=== PATIENT | female | born 1965 | race Caucasian/White ===

== ENCOUNTER 2017-03-08 15:51 | Emergency (ER) | payer BC, OTHER ==
[2017-03-08 17:35] LABS: Hematocrit 38 % (35-47); Hemoglobin 12.2 g/dl (12.0-16.0); Mean Corpuscular HGB Conc 33 g/dl (31-36); Mean Corpuscular Hemoglobin 29 pg (27-31); Mean Corpuscular Volume 88 fL (80-97); Mean Platelet Volume 8 um3 (7.4-10.4); Red Cell Distribution Width 13 % (10.5-15); White Blood Count 8.4 10^3/ul (3.5-10.8)
[2017-03-08 17:58] LABS: Urine Bilirubin Negative (Negative); Urine Glucose Negative (Negative); Urine Nitrite Negative (Negative)
[2017-03-08 18:06] LABS: Albumin 3.8 g/dL (3.2-5.2); C Reactive Protein 20.38 mg/L (< 5.00); Calcium 8.7 mg/dL (8.6-10.3); EGFR African American 77.9 (>60); EGFR Non-African American 60.6 (>60); Globulin 2.8 g/dL (2-4); Total Bilirubin 0.4 mg/dL (0.2-1.0); Total Protein 6.6 g/dL (6.4-8.9)
[2017-03-08] MEDS ORDERED: Iohexol 300* (CONTRAST) 10 ML SDV IV ONE (18:11)
--- NOTE | 2017-03-08 20:02 | RAD ---
INDICATION: Right lower quadrant abdominal pain. COMPARISON: Comparison is made with a prior CT of the abdomen and pelvis from September 08, 2015. TECHNIQUE: A CT scan of the abdomen and pelvis was performed with intravenous and oral contrast following intravenous injection of 85 ml of Omnipaque 300 nonionic contrast. Contiguous axial sections were obtained from the lung bases through the symphysis pubis. Images were reconstructed in the coronal and sagittal planes. FINDINGS: There is mild dependent bilateral lower lobe subsegmental atelectasis. No pleural effusion is present. The liver and spleen are within normal limits in size without significant focal abnormality. No calcified gallstones are seen. The pancreas appears to be within normal limits in size. The kidneys and adrenal glands are normal in size. No hydronephrosis is seen. No significant focal renal abnormality is seen. The aorta is normal in caliber with mild calcific plaque present. No significant enlarged retroperitoneal lymph nodes are seen. The stomach, small and large bowel appear nondistended. The patient is status post appendectomy by history. There is mild to moderate descending and sigmoid diverticulosis. There is mild thickening of the wall of the proximal sigmoid colon with stranding in the adjacent mesenteric fat which is a nonspecific finding although most consistent with diverticulitis. No abscess is seen. The uterus is anteverted and mildly enlarged. No free intraperitoneal air or fluid is seen. No fracture is seen. There is severe degenerative disc disease and sclerotic degenerative endplate changes at the L5-S1 level. IMPRESSION: 1. FINDINGS MOST CONSISTENT WITH DIVERTICULITIS. CONSIDER FOLLOW-UP COLONOSCOPY IF THE PATIENT HAS NOT HAD A RECENT STUDY. 2. MILDLY ENLARGED UTERUS.
[2017-03-08] MEDS ORDERED: HYDROcodone/ACETAMIN 5-325 MG* 1 TAB PO ONE (20:24)
[2017-03-08] MEDS ORDERED: metroNIDAZOLE TAB* 250 MG PO ONE (21:00)
[2017-03-08] MEDS ORDERED: Ciprofloxacin TAB* 500 MG PO ONE (21:00)
[2017-03-08 21:44] VITALS: BP 119/66
--- NOTE | 2017-03-08 22:38 | ED ---
Kay Underwood Erika, scribed for José Hardin MD on 03/08/17 at 1633 . Abdominal Pain/Female - HPI Summary HPI Summary: Patient is a 52-year-old female presenting to the ED with a CC of sharp LLQ pain for the past 1-2 weeks. Patient reports pain has been mostly constant, but sometimes waxes and wanes seemingly randomly. Pain is aggravated by palpation and when hitting bumps on the road. She notes she had some nausea, but denies vomiting, diarrhea, blood in stool, and urinary symptoms. She reports a normal BM today. Hx kidney stones with sepsis. PSHx cataract surgery, appendectomy. - History of Current Complaint Chief Complaint: EDAbdPain Stated Complaint: ABD PAIN Time Seen by Provider: 03/08/17 16:08 Hx Obtained From: Patient Onset/Duration: Gradual Onset, Lasting Weeks, Still Present Timing: Constant Severity Currently: Moderate Pain Intensity: 5 Pain Scale Used: 0-10 Numeric Location: Discrete At: LLQ Character: Sharp Aggravating Factor(s): Other: - palpation, bumps in road Associated Signs and Symptoms: Positive: Nausea. Negative: Urinary Symptoms, Vomiting, Diarrhea Allergies/Adverse Reactions: Allergies Allergy/AdvReac Type Severity Reaction Status Date / Time No Known Allergies Allergy Verified 03/08/17 15:54 Home Medications: Home Medications Escitalopram (NF) [Lexapro (NF)] 10 mg PO DAILY 03/08/17 [History Confirmed 01/20] Lisinopril TAB* [Prinivil TAB*] 10 mg PO DAILY 03/08/17 [History Confirmed 03/08] PMH/Surg Hx/FS Hx/Imm Hx History: Reports: Hx Kidney Stones Opthamlomology History: Reports: Hx Cataracts - Surgical History Surgery Procedure, Year, and Place: right nephrostomy tube placed 08/21/15, appy , cataracts Infectious Disease History: Denies: Traveled Outside the [place] in Last 30 Days - Family History Known Family History: Positive: Cardiac Disease - [place] before age 55 - father, sibling, grandparent, Hypertension, Diabetes - Social History Alcohol Use: Rare Hx Substance Use: No Substance Use Type: Reports: None Hx Tobacco Use: Yes Smoking Status (MU): Former Smoker Review of Systems Positive: Abdominal Pain, Nausea. Negative: Vomiting, Diarrhea Negative: dysuria, frequency All Other Systems Reviewed And Are Negative: Yes Physical Exam Triage Information Reviewed: Yes Vital Signs On Initial Exam: Initial Vitals Temp Pulse Resp BP Pulse Ox 98.1 F 65 18 131/75 100 03/08/17 15:52 03/08/17 15:52 03/08/17 15:52 03/08/17 15:52 03/08/17 15:52 Vital Signs Reviewed: Yes Appearance: Positive: Well-Appearing, No Pain Distress Skin: Positive: Warm, Skin Color Reflects Adequate Perfusion, Dry Head/Face: Positive: Normal Head/Face Inspection Eyes: Positive: Normal ENT: Positive: Normal ENT inspection Neck: Positive: Supple, Nontender Respiratory/Lung Sounds: Positive: Clear to Auscultation, Breath Sounds Present Cardiovascular: Positive: RRR Abdomen Description: Positive: Soft, Other: - Tender LLQ with no rebound. Negative: Guarding Bowel Sounds: Positive: Present Musculoskeletal: Positive: Normal Neurological: Positive: Normal Psychiatric: Positive: Affect/Mood Appropriate Diagnostics - Vital Signs Vital Signs Temp Pulse Resp BP Pulse Ox 03/08/17 15:52 98.1 F 65 18 131/75 100 - Laboratory Lab Results: Lab Results 03/08/17 03/08/17 03/08/17 Range/Units 16:15 17:15 17:15 WBC 8.4 (3.5-10.8) 10^3/ul RBC 4.30 (4.0-5.4) 10^6/ul Hgb 12.2 (12.0-16.0) g/dl Hct 38 (35-47) % MCV 88 (80-97) fL MCH 29 (27-31) pg MCHC 33 (31-36) g/dl RDW 13 (10.5-15) % Plt Count 238 (150-450) 10^3/ul MPV 8 (7.4-10.4) um3 Neut % (Auto) 65.0 (38-83) % Lymph % (Auto) 22.3 L (25-47) % [place] % (Auto) 9.3 H (1-9) % Eos % (Auto) 3.0 (0-6) % Baso % (Auto) 0.4 (0-2) % Absolute Neuts (auto) 5.5 (1.5-7.7) 10^3/ul Absolute Lymphs (auto) 1.9 (1.0-4.8) 10^3/ul Absolute Monos (auto) 0.8 (0-0.8) 10^3/ul Absolute Eos (auto) 0.3 (0-0.6) 10^3/ul Absolute Basos (auto) 0 (0-0.2) 10^3/ul Absolute Nucleated RBC 0 10^3/ul Nucleated RBC % 0 Sodium 139 (133-145) mmol/L Potassium 4.0 (3.5-5.0) mmol/L Chloride 108 (101-111) mmol/L Carbon Dioxide 26 (22-32) mmol/L Anion Gap 5 (2-11) mmol/L BUN 24 (6-24) mg/dL Creatinine 0.96 H (0.51-0.95) mg/dL Est GFR ( Amer) 77.9 (>60) Est GFR (Non-Af Amer) 60.6 (>60) BUN/Creatinine Ratio 25.0 H (8-20) Glucose 83 (70-100) mg/dL Lactic Acid (0.5-2.0) mmol/L Calcium 8.7 (8.6-10.3) mg/dL Total Bilirubin 0.40 (0.2-1.0) mg/dL AST 10 L (13-39) U/L ALT 8 (7-52) U/L Alkaline Phosphatase 59 (34-104) U/L C-Reactive Protein 20.38 H (< 5.00) mg/L Total Protein 6.6 (6.4-8.9) g/dL Albumin 3.8 (3.2-5.2) g/dL Globulin 2.8 (2-4) g/dL Albumin/Globulin Ratio 1.4 (1-3) Lipase 65 (11.0-82.0) U/L Urine Color Yellow Urine Appearance Cloudy Urine pH 6.0 (5-9) Ur Specific [place] 1.025 (1.010-1.030) Urine Protein Negative (Negative) Urine Ketones Negative (Negative) Urine Blood Negative (Negative) Urine Nitrate Negative (Negative) Urine Bilirubin Negative (Negative) Urine Urobilinogen Negative (Negative) Ur Leukocyte Esterase Negative (Negative) Urine Glucose Negative (Negative) 03/08/17 Range/Units 17:15 WBC (3.5-10.8) 10^3/ul RBC (4.0-5.4) 10^6/ul Hgb (12.0-16.0) g/dl Hct (35-47) % MCV (80-97) fL MCH (27-31) pg MCHC (31-36) g/dl RDW (10.5-15) % Plt Count (150-450) 10^3/ul MPV (7.4-10.4) um3 Neut % (Auto) (38-83) % Lymph % (Auto) (25-47) % [place] % (Auto) (1-9) % Eos % (Auto) (0-6) % Baso % (Auto) (0-2) % Absolute Neuts (auto) (1.5-7.7) 10^3/ul Absolute Lymphs (auto) (1.0-4.8) 10^3/ul Absolute Monos (auto) (0-0.8) 10^3/ul Absolute Eos (auto) (0-0.6) 10^3/ul Absolute Basos (auto) (0-0.2) 10^3/ul Absolute Nucleated RBC 10^3/ul Nucleated RBC % Sodium (133-145) mmol/L Potassium (3.5-5.0) mmol/L Chloride (101-111) mmol/L Carbon Dioxide (22-32) mmol/L Anion Gap (2-11) mmol/L BUN (6-24) mg/dL Creatinine (0.51-0.95) mg/dL Est GFR ( Amer) (>60) Est GFR (Non-Af Amer) (>60) BUN/Creatinine Ratio (8-20) Glucose (70-100) mg/dL Lactic Acid 0.6 (0.5-2.0) mmol/L Calcium (8.6-10.3) mg/dL Total Bilirubin (0.2-1.0) mg/dL AST (13-39) U/L ALT (7-52) U/L Alkaline Phosphatase (34-104) U/L C-Reactive Protein (< 5.00) mg/L Total Protein (6.4-8.9) g/dL Albumin (3.2-5.2) g/dL Globulin (2-4) g/dL Albumin/Globulin Ratio (1-3) Lipase (11.0-82.0) U/L Urine Color Urine Appearance Urine pH (5-9) Ur Specific [place] (1.010-1.030) Urine Protein (Negative) Urine Ketones (Negative) Urine Blood (Negative) Urine Nitrate (Negative) Urine Bilirubin (Negative) Urine Urobilinogen (Negative) Ur Leukocyte Esterase (Negative) Urine Glucose (Negative) Result Diagrams: 03/08/17 17:15 03/08/17 17:15 Lab Statement: Any lab studies that have been ordered have been reviewed, and results considered in the medical decision making process. - CT CT A/P W/ CT Interpretation Completed By: Radiologist - IMPRESSION: 1. FINDINGS MOST CONSISTENT WITH DIVERTICULITIS. CONSIDER FOLLOW-UP COLONOSCOPY IF THE PATIENT HAS NOT HAD A RECENT STUDY. 2. MILDLY ENLARGED UTERUS. Re-Evaluation - Re-Evaluation First Eval Re-Evaluation Time: 20:18 Comment: Discussed CT results with patient. Abdominal Pain Fem Course/Dx - Course Course Of Treatment: Ms. Alves presented with LLQ pain and was found to have diverticulitis on CT scan. She will be treated with antibiotics and pain control. - Diagnoses Provider Diagnoses: Diverticulitis Discharge - Discharge Plan Condition: Stable Disposition: HOME Prescriptions: Ciprofloxacin TAB* [Cipro Tab*] 500 mg PO BID #20 tab HYDROcodone/ACETAMIN 5-325 MG* [[place] 5-325 TAB*] 1 tab PO Q6H PRN #20 tab MDD 4 PRN Reason: Pain Metronidazole [Flagyl 500 MG TAB] 500 mg PO TID #30 tab Patient Education Materials: Diverticulitis (ED) Referrals: Martínez Hoffman MD [Primary Care Provider] - The documentation as recorded by the Kay landaverde Erika accurately reflects the service I personally performed and the decisions made by , José Hardin MD.
== END 2017-03-08 21:44 | disposition home or self-care (01) ==
LOC: ED 15:51
DX: K57.92 Diverticulitis of intestine, part unspecified, without perforation or abscess without bleeding (principal); Z87.891 Personal history of nicotine dependence
CPT/HCPCS: 36415; 74177; 80053; 81003; 83605; 83690; 85025; 86140; 99283; A9270-GY; Q9967

== ENCOUNTER 2018-06-12 19:33 | Emergency (ER) | payer BC, OTHER ==
[2018-06-12] MEDS ORDERED: Acetaminophen TAB* 325 MG PO ONE (21:15)
[2018-06-12] MEDS ORDERED: NS 0.9% 1000 ML*IV.FLUID IV ONE (21:15)
[2018-06-12] MEDS ORDERED: Levofloxacin 500 MG IVPREMIX(* 500 MG/100 ML BAG IVPB ONE (21:17)
[2018-06-12 22:02] LABS: ABS Basophils 0 10^3/ul (0-0.2); ABS Eosinophils 0.1 10^3/ul (0-0.6); ABS Lymphocytes 0.1 10^3/ul (1.0-4.8); ABS Monocytes 0.1 10^3/ul (0-0.8); ABS Neutrophils 4.4 10^3/ul (1.5-7.7); ABS Nucleated RBC 0 10^3/ul; Eosinophil % 1.3 % (0-6); Hematocrit 40 % (35-47); Hemoglobin 13.5 g/dl (12.0-16.0); Lymphocyte % 2.4 % (25-47); Mean Corpuscular HGB Conc 33 g/dl (31-36); Mean Corpuscular Hemoglobin 29 pg (27-31); Mean Corpuscular Volume 88 fL (80-97); Mean Platelet Volume 7.6 um3 (7.4-10.4); Nucleated Red Blood Cells % 0.1; Platelet Count 197 10^3/ul (150-450); Red Blood Count 4.62 10^6/ul (4.00-5.40); Red Cell Distribution Width 13 % (10.5-15); White Blood Count 4.7 10^3/ul (3.5-10.8)
[2018-06-12 22:14] LABS: INR 0.98 (0.77-1.02)
[2018-06-12 22:18] LABS: EGFR Non-African American 61.1 (>60)
[2018-06-12 23:19] LABS: Urine Appearance Clear; Urine Blood Negative (Negative); Urine Color Yellow; Urine Ketones Negative (Negative); Urine Protein Negative (Negative); Urine Red Blood Cell 1+(3-5/hpf) (Absent); Urine Specific Gravity 1.024 (1.010-1.030); Urine Urobilinogen Negative (Negative); Urine White Blood Cell 2+(11-20/hpf) (Absent)
--- NOTE | 2018-06-12 23:31 | ED ---
GI/ HPI - HPI Summary HPI Summary: This is scribe Vik Yanes documenting for attending Thi Ledesma M.D. Patient is a 53 y/o F w/ c/o UTI. She states she is being for UTI since three days but has only started taking prescribed Bactrim yesterday. UTI Sx have not gotten better. Patient reports dysuria, fevers, chills, nausea and right sided lower back pain. Vomiting is denied. She reports feeling tired today and took tylenol at 1300. PHMx of kidney stones and sepsis is noted. On triage, pain is rated 2/10 and nothing is noted to aggravate/alleviate Sx. Home medications and allergies reviewed. I, Dr. Ledesma, personally performed the services described in this documentation as scribed in my presence and it is both accurate and complete. - History of Current Complaint Chief Complaint: EDFever Time Seen by Provider: 06/12/18 21:02 Stated Complaint: GENERAL ILLNESS Hx Obtained From: Patient Onset/Duration: Started Days Ago - patient reports beginning treatment for UTI three days ago Timing: Constant Current Severity: Mild - 2/10 Pain Intensity: 2 Location of Pain: Other - right lower back Associated Signs and Symptoms: Positive: Back Pain - lower right, Nausea, Fever , Dysuria, Chills, UTI Symptoms - states she is being treated for UTI, Other: - tiredness. Negative: Vomiting - Allergy/Home Medications Allergies/Adverse Reactions: Allergies Allergy/AdvReac Type Severity Reaction Status Date / Time No Known Allergies Allergy Verified 03/08/17 15:54 PMH/Surg Hx/FS Hx/Imm Hx History: Reports: Hx Kidney Stones Sensory History: Reports: Hx Cataracts Opthamlomology History: Reports: Hx Cataracts - Surgical History Surgery Procedure, Year, and Place: right nephrostomy tube placed 08/21/15, appy , cataracts Infectious Disease History: No Infectious Disease History: Denies: Traveled Outside the [place] in Last 30 Days - Family History Known Family History: Positive: Cardiac Disease - [place] before age 55 - father, sibling, grandparent, Hypertension, Diabetes - Social History Alcohol Use: Rare Hx Substance Use: No Substance Use Type: Reports: None Hx Tobacco Use: Yes Smoking Status (MU): Former Smoker Review of Systems Positive: Fever, Chills, Fatigue - tiredness Positive: Nausea. Negative: Vomiting Positive: dysuria Positive: Other - right sided lower back pain All Other Systems Reviewed And Are Negative: Yes Physical Exam - Summary Physical Exam Summary: VITAL SIGNS: Reviewed. GENERAL: Patient is a well-developed and nourished female who is lying comfortable in the stretcher. Patient is not in any acute respiratory distress. HEAD AND FACE: No signs of trauma. No ecchymosis, hematomas or skull depressions. No sinus tenderness. EYES: PERRLA, EOMI x 2, No injected conjunctiva, no nystagmus. EARS: Hearing grossly intact. Ear canals and tympanic membranes are within normal limits. MOUTH: Oropharynx within normal limits. NECK: Supple, trachea is midline, no adenopathy, no JVD, no carotid bruit, no c- spine tenderness, neck with full ROM. CHEST: Symmetric, no tenderness at palpation LUNGS: Clear to auscultation bilaterally. No wheezing or crackles. CVS: Regular rate and rhythm, S1 and S2 present, no murmurs or gallops appreciated. ABDOMEN: Soft, non-tender. No signs of distention. No rebound no guarding, and no masses palpated. Bowel sounds are normal. EXTREMITIES: FROM in all major joints, no edema, no cyanosis or clubbing. NEURO: Alert and oriented x 3. No acute neurological deficits. Speech is normal and follows commands. SKIN: Dry and warm Triage Information Reviewed: Yes Vital Signs On Initial Exam: Initial Vitals Temp Pulse Resp BP Pulse Ox 99.2 F 112 18 139/69 96 06/12/18 19:35 06/12/18 19:35 06/12/18 19:35 06/12/18 19:35 06/12/18 19:35 Vital Signs Reviewed: Yes Diagnostics - Vital Signs Vital Signs Temp Pulse Resp BP Pulse Ox 06/12/18 22:06 95/56 06/12/18 21:36 95 106/75 96 06/12/18 21:34 90 96 06/12/18 21:06 115/66 06/12/18 19:35 99.2 F 112 18 139/69 96 - Laboratory Lab Results: Lab Results 06/12/18 06/12/18 06/12/18 Range/Units 21:54 21:54 21:54 WBC 4.7 (3.5-10.8) 10^3/ul RBC 4.62 (4.00-5.40) 10^6/ul Hgb 13.5 (12.0-16.0) g/dl Hct 40 (35-47) % MCV 88 (80-97) fL MCH 29 (27-31) pg MCHC 33 (31-36) g/dl RDW 13 (10.5-15) % Plt Count 197 (150-450) 10^3/ul MPV 7.6 (7.4-10.4) um3 Neut % (Auto) 93.1 H (38-83) % Lymph % (Auto) 2.4 L (25-47) % [place] % (Auto) 3.0 (0-7) % Eos % (Auto) 1.3 (0-6) % Baso % (Auto) 0.2 (0-2) % Absolute Neuts (auto) 4.4 (1.5-7.7) 10^3/ul Absolute Lymphs (auto) 0.1 L (1.0-4.8) 10^3/ul Absolute Monos (auto) 0.1 (0-0.8) 10^3/ul Absolute Eos (auto) 0.1 (0-0.6) 10^3/ul Absolute Basos (auto) 0 (0-0.2) 10^3/ul Absolute Nucleated RBC 0 10^3/ul Nucleated RBC % 0.1 INR (Anticoag Therapy) 0.98 (0.77-1.02) APTT 30.7 (26.0-36.3) seconds Sodium 137 (135-145) mmol/L Potassium 3.8 (3.5-5.0) mmol/L Chloride 108 (101-111) mmol/L Carbon Dioxide 22 (22-32) mmol/L Anion Gap 7 (2-11) mmol/L BUN 22 (6-24) mg/dL Creatinine 0.95 (0.51-0.95) mg/dL Est GFR ( Amer) 73.9 (>60) Est GFR (Non-Af Amer) 61.1 (>60) BUN/Creatinine Ratio 23.2 H (8-20) Glucose 154 H (70-100) mg/dL Lactic Acid (0.5-2.0) mmol/L Calcium 8.9 (8.6-10.3) mg/dL Total Bilirubin 0.40 (0.2-1.0) mg/dL AST 19 (13-39) U/L ALT 17 (7-52) U/L Alkaline Phosphatase 69 (34-104) U/L C-Reactive Protein 33.29 H (<8.01) mg/L Total Protein 6.8 (6.4-8.9) g/dL Albumin 3.9 (3.2-5.2) g/dL Globulin 2.9 (2-4) g/dL Albumin/Globulin Ratio 1.3 (1-3) Urine Color Urine Appearance Urine pH (5-9) Ur Specific [place] (1.010-1.030) Urine Protein (Negative) Urine Ketones (Negative) Urine Blood (Negative) Urine Nitrate (Negative) Urine Bilirubin (Negative) Urine Urobilinogen (Negative) Ur Leukocyte Esterase (Negative) Urine WBC (Auto) (Absent) Urine RBC (Auto) (Absent) Ur Squamous Epith Cells (Absent) Urine Bacteria (Absent) Urine Glucose (Negative) Urine Ascorbic Acid (Negative) 06/12/18 06/12/18 Range/Units 21:54 23:04 WBC (3.5-10.8) 10^3/ul RBC (4.00-5.40) 10^6/ul Hgb (12.0-16.0) g/dl Hct (35-47) % MCV (80-97) fL MCH (27-31) pg MCHC (31-36) g/dl RDW (10.5-15) % Plt Count (150-450) 10^3/ul MPV (7.4-10.4) um3 Neut % (Auto) (38-83) % Lymph % (Auto) (25-47) % [place] % (Auto) (0-7) % Eos % (Auto) (0-6) % Baso % (Auto) (0-2) % Absolute Neuts (auto) (1.5-7.7) 10^3/ul Absolute Lymphs (auto) (1.0-4.8) 10^3/ul Absolute Monos (auto) (0-0.8) 10^3/ul Absolute Eos (auto) (0-0.6) 10^3/ul Absolute Basos (auto) (0-0.2) 10^3/ul Absolute Nucleated RBC 10^3/ul Nucleated RBC % INR (Anticoag Therapy) (0.77-1.02) APTT (26.0-36.3) seconds Sodium (135-145) mmol/L Potassium (3.5-5.0) mmol/L Chloride (101-111) mmol/L Carbon Dioxide (22-32) mmol/L Anion Gap (2-11) mmol/L BUN (6-24) mg/dL Creatinine (0.51-0.95) mg/dL Est GFR ( Amer) (>60) Est GFR (Non-Af Amer) (>60) BUN/Creatinine Ratio (8-20) Glucose (70-100) mg/dL Lactic Acid 0.7 (0.5-2.0) mmol/L Calcium (8.6-10.3) mg/dL Total Bilirubin (0.2-1.0) mg/dL AST (13-39) U/L ALT (7-52) U/L Alkaline Phosphatase (34-104) U/L C-Reactive Protein (<8.01) mg/L Total Protein (6.4-8.9) g/dL Albumin (3.2-5.2) g/dL Globulin (2-4) g/dL Albumin/Globulin Ratio (1-3) Urine Color Yellow Urine Appearance Clear Urine pH 5.0 (5-9) Ur Specific [place] 1.024 (1.010-1.030) Urine Protein Negative (Negative) Urine Ketones Negative (Negative) Urine Blood Negative (Negative) Urine Nitrate Negative (Negative) Urine Bilirubin Negative (Negative) Urine Urobilinogen Negative (Negative) Ur Leukocyte Esterase Trace A (Negative) Urine WBC (Auto) 2+(11-20/hpf) A (Absent) Urine RBC (Auto) 1+(3-5/hpf) A (Absent) Ur Squamous Epith Cells Present A (Absent) Urine Bacteria Absent (Absent) Urine Glucose Negative (Negative) Urine Ascorbic Acid * A (Negative) Result Diagrams: 06/12/18 21:54 06/12/18 21:54 Lab Statement: Any lab studies that have been ordered have been reviewed, and results considered in the medical decision making process. - Radiology CXR Xray Interpretation: No Acute Changes Radiology Interpretation Completed By: ED Physician - No acute processes. ED physician has reviewed this imaging report pending official report - CT CT abd/pel CT Interpretation: Positive (See Comments) CT Interpretation Completed By: Radiologist - 1. Diverticulosis without focal inflammatory changes characteristic of diverticulitis. 2. No renal calculi or signs of obstructive uropathy. 3. Additional chronic, degenerative and iatrogenic findings described in the body the report. This report was reviewed by ED physician. Re-Evaluation - Re-Evaluation First Eval Re-Evaluation Time: 23:28 Comment: Patient will be discharged to home and follow up with PCP in 1-2 days. She is agreeable with plan. GIGU Course/Dx - Course Assessment/Plan: Patient is a 53 y/o F w/ c/o UTI. She states she is being for UTI since three days but has only started taking prescribed Bactrim yesterday. UTI Sx have not gotten better. Patient reports dysuria, fevers, chills, nausea and right sided lower back pain. Vomiting is denied. She reports feeling tired today and took tylenol at 1300. PHMx of kidney stones and sepsis is noted. On triage, pain is rated 2/10 and nothing is noted to aggravate/alleviate Sx. Physical exam was normal. During ED course, patient was given fluids, levofloxacin/dextrose 500 mg in 100mls @ 100 mls/hr IVPB ED ONCE, Tylenol 975 mg PO ED ONCE. UA showed Ur Leukocyte Esterase Trace A, Urine WBC 2+(11-20/hpf) A, Urine RBC 1+(3-5/hpf) A, Ur Squamous Epith Cells Present A, Urine Ascorbic Acid is present. Labs also showed Neut % 93.1 H, Lymph % 2.4 L, CRP 33.[address] abd/pel and CXR impressions are noted above. Patient was discharged to home with UTI and instructed to follow up with PCP in 1-2 days. She was prescribed Ibuprofen TAB* [Motrin TAB* 800 MG] 800 mg PO Q6H PRN #30 tab PRN Reason: Fever/ Pain, Levofloxacin TAB* [Levaquin TAB*] 500 mg PO DAILY #10 tab, Phenazopyridine TAB* [Pyridium 100 mg TAB*] 100 mg PO TID PRN #7 tab PRN Reason : Pain. Patient is agreeable with this plan. - Diagnoses Provider Diagnoses: UTI (urinary tract infection) Discharge - Sign-Out/Discharge Documenting (check all that apply): Patient Departure - discharge - Discharge Plan Condition: Stable Disposition: HOME Prescriptions: Ibuprofen TAB* [Motrin TAB* 800 MG] 800 mg PO Q6H PRN #30 tab PRN Reason: Fever/Pain Levofloxacin TAB* [Levaquin TAB*] 500 mg PO DAILY #10 tab Phenazopyridine TAB* [Pyridium 100 mg TAB*] 100 mg PO TID PRN #7 tab PRN Reason: Pain Patient Education Materials: Urinary Tract Infection in Women (ED) Referrals: Martínez Hoffman MD [Primary Care Provider] - 2 Days Additional Instructions: Follow up with primary care physician in 1-2 days. Return to ED for any changing or worsening symptoms. - Billing Disposition and Condition Condition: STABLE Disposition: Home
[2018-06-13 00:10] VITALS: BP 113/66
--- NOTE | 2018-06-13 07:40 | RAD ---
INDICATION: Fever COMPARISON: Chest x-ray dated September 08, 2015 TECHNIQUE: Single AP view of the chest was obtained. FINDINGS: The heart and mediastinum exhibit normal size and contour. The lungs are grossly clear. There is no evidence of a large pleural effusion. Visualized bones are normal for the patient's age. IMPRESSION: No radiographic evidence for acute cardiopulmonary abnormality on this single AP view chest x-ray. R0
--- NOTE | 2018-06-13 07:53 | RAD ---
CLINICAL HISTORY: Abdominal pain. Relevant surgical history includes right nephrostomy tube placed August 21, 2015 and appendectomy. COMPARISON: Similar CT examination September 08, 2015 TECHNIQUE: Noncontrast CT examination of the abdomen and pelvis from the lung bases through the initial tuberosities. FINDINGS: VISUALIZED LUNG BASES: The visualized lung bases are grossly clear. There is no pleural effusion. ABDOMEN AND PELVIS: Evaluation of the solid organs and vasculature is limited without intravenous contrast. The liver, spleen, pancreas and adrenal glands are grossly normal in appearance. The gallbladder is normal. The kidneys are normal in appearance without focal mass, calcification or signs of hydronephrosis. Evaluation of the gastrointestinal tract is limited in the absence of oral contrast. The small and large bowel are not distended.Consistent with the patient's surgical history, the appendix is not seen. There are distal colonic diverticula but none exhibit focal inflammatory change characteristic of acute diverticulitis. There is no gross retroperitoneal or mesenteric lymphadenopathy. The pelvic viscera is normal in appearance. The abdominal aorta and iliac arteries are normal in course and diameter. Degenerative changes include multilevel loss of intervertebral disc height involving the lower thoracic and lumbar spine. The most severe degenerative changes are at L5/S1 where there is vacuum disc phenomenon and endplate sclerosis.There are no sinister bone lesions. IMPRESSION: 1. Diverticulosis without focal inflammatory changes characteristic of diverticulitis. 2. No renal calculi or signs of obstructive uropathy. 3. Additional chronic, degenerative and iatrogenic findings described in the body the report.
== END 2018-06-13 00:09 | disposition home or self-care (01) ==
LOC: ED 19:33
DX: N39.0 Urinary tract infection, site not specified (principal); Z87.442 Personal history of urinary calculi; Z87.891 Personal history of nicotine dependence
CPT/HCPCS: 36415; 71045; 74176; 80053; 81003; 81015; 83605; 85025; 85610; 85730; 86140; 87040; 87086; 96361; 96374; 99283; A9270-GY; J1956

== ENCOUNTER 2023-10-23 17:02 | Observation (INO) ==
[2023-10-23] MEDS ORDERED: Lactated Ringers 1000 ml BAG 1,000 ML IV ONE ×2 (17:18→20:45)
[2023-10-23 17:55] LABS: ABS Eosinophils 0.1 10^3/uL (0.0-0.5); ABS Lymphocytes 0.1 10^3/uL (1.0-4.8); ABS Monocytes 0.2 10^3/uL (0.0-0.9); ABS Neutrophils 6.3 10^3/uL (1.5-7.6); Eosinophil % 1.3 %; Hematocrit 39.1 % (35-45); Hemoglobin 13.3 g/dL (11.5-14.3); Lymphocyte % 1.6 %; Mean Corpuscular Hemoglobin 29.4 pg (27-33); Mean Corpuscular Hgb Conc 34.1 g/dL (31-36); Mean Corpuscular Volume 86.2 fL (80-97); Mean Platelet Volume 7.2 fL (7.5-11.2); Platelet Count 250 10^3/uL (150-450); Red Blood Count 4.54 10^6/uL (3.63-4.92); Red Cell Distribution Width 12.6 % (12-17); White Blood Count 6.7 10^3/uL (3.8-11.8)
[2023-10-23 18:00] LABS: Activated Partial Thrombo Time 31.6 seconds (26.0-38.0); INR 1.08 (0.83-1.13)
[2023-10-23 18:10] LABS: Albumin 4.1 g/dL (3.2-5.2); Albumin/Globulin Ratio 1.3 (1-3); C Reactive Protein 128.16 mg/L (<8.01); Calcium 8.7 mg/dL (8.6-10.3); Creatinine, Serum 1.03 mg/dL (0.51-0.95); Globulin 3.1 g/dL (2-4); Potassium 3.9 mmol/L (3.5-5.0); Total Bilirubin 0.5 mg/dL (0.2-1.0); Total Protein 7.2 g/dL (6.4-8.9); eGFR CKD-EPI 62.2 (>60)
[2023-10-23] MEDS ORDERED: Piperacillin/Tazobac 3.375 BAG 3.375 GM/100 ML BAG IV ONE (21:32)
[2023-10-23] MEDS ORDERED: Iohexol 350 (CONTRAST) 500 ML MDV IV ONE ×2 (21:41→22:06)
[2023-10-23] MEDS ORDERED: Lactated Ringers 1000 ml BAG 500 ML IV ONE (22:27)
[2023-10-24] MEDS ORDERED: Lactated Ringers 1000 ml BAG 1,000 ML IV ONE (00:41)
[2023-10-24] MEDS ORDERED: Ondansetron 4 mg VIAL 2 MG/ML 2 ml VIAL IV ONE (00:42)
[2023-10-24] MEDS ORDERED: Ondansetron 4 mg VIAL 2 MG/ML 2 ml VIAL IV PRN (04:12)
[2023-10-24] MEDS ORDERED: ZOSYN 3.375 GM Q8H per EXTENDED INFUSION IV SCH (05:00)
[2023-10-24] MEDS ORDERED: Zosyn per Pharmacy NOTE FOLLOW UP SCH (05:00)
[2023-10-24] MEDS ORDERED: Heparin 5000 UNITS/ML 1 mL VIAL SUBCUT SCH (05:00)
[2023-10-24] MEDS: Acetaminophen IV 1 GM/100ML 1,000 MG/100 ML BAG IV SCH ×3 (06:13→22:18)
[2023-10-24 08:25] LABS: Creatinine, Serum 0.95 mg/dL (0.51-0.95); Potassium 3.9 mmol/L (3.5-5.0); eGFR CKD-EPI 68.6 (>60)
[2023-10-24 08:26] LABS: Albumin 3.4 g/dL (3.2-5.2); Albumin/Globulin Ratio 1.4 (1-3); Calcium 7.8 mg/dL (8.6-10.3); Globulin 2.5 g/dL (2-4); Magnesium 1.8 mg/dL (1.9-2.7); Total Bilirubin 0.4 mg/dL (0.2-1.0); Total Protein 5.9 g/dL (6.4-8.9)
[2023-10-24 09:22] LABS: ABS Lymphocytes 0.2 10^3/uL (1.0-4.8); ABS Monocytes 0.2 10^3/uL (0.0-0.9); ABS Neutrophils 4.3 10^3/uL (1.5-7.6); ABS Nucleated RBC 0.01 10^3/ul; Eosinophil % 0.9 %; Hematocrit 35.1 % (35-45); Hemoglobin 12.1 g/dL (11.5-14.3); Lymphocyte % 4.9 %; Mean Corpuscular Hemoglobin 29.6 pg (27-33); Mean Corpuscular Hgb Conc 34.4 g/dL (31-36); Mean Corpuscular Volume 86.2 fL (80-97); Mean Platelet Volume 7.8 fL (7.5-11.2); Nucleated Red Blood Cells % 0.2 %/100WBC (0.0-0.8); Platelet Count 201 10^3/uL (150-450); Red Blood Count 4.08 10^6/uL (3.63-4.92); Red Cell Distribution Width 12.7 % (12-17); White Blood Count 4.9 10^3/uL (3.8-11.8)
[2023-10-24] MEDS: cefTRIAXone 1 gm/50 mL D5W 1 GM/50 ML BAG IV SCH (11:44)
[2023-10-24] MEDS: metroNIDAZOLE IV 500 MG/100ML 500 MG/100 ML BAG IVPB SCH ×2 (11:53→20:28)
[2023-10-24] MEDS: Enoxaparin 40 MG/0.4 ML SYR SUBCUT SCH (14:42)
[2023-10-25] MEDS: metroNIDAZOLE IV 500 MG/100ML 500 MG/100 ML BAG IVPB SCH ×2 (03:33→12:28)
[2023-10-25] MEDS: Acetaminophen IV 1 GM/100ML 1,000 MG/100 ML BAG IV SCH ×2 (05:39→14:30)
[2023-10-25 06:54] LABS: Calcium 7.6 mg/dL (8.6-10.3); Creatinine, Serum 0.89 mg/dL (0.51-0.95); Magnesium 1.9 mg/dL (1.9-2.7); Potassium 3.7 mmol/L (3.5-5.0); eGFR CKD-EPI 74.2 (>60)
[2023-10-25 09:44] VITALS: BP 109/68
[2023-10-25] MEDS: cefTRIAXone 1 gm/50 mL D5W 1 GM/50 ML BAG IV SCH (12:28)
[2023-10-25] MEDS: Enoxaparin 40 MG/0.4 ML SYR SUBCUT SCH (13:47)
== END 2023-10-25 16:25 | disposition home or self-care (01) ==
LOC: ED 17:02 → EDHOLD 17:02 → SUATTDRO 10-24 04:00 → SSU 10-24 08:40
PROVIDERS: ADMIT Internal Medicine; ATTEND Hospitalist